=== PATIENT | male | born 1945 | race Caucasian/White ===

== ENCOUNTER 2018-01-14 19:02 | Emergency (ER) | payer MEDICARE, MEDICAID ==
[~2018-01-14] VITALS: Ht 180.3 cm; Wt 59.1 kg
[~2018-01-14 19:02] MED LIST: ALBU6.7H INH; FLUT1DIS4 INH; IPRA3AMP IH
[2018-01-14] MEDS ORDERED: methylPREDNISolone sod succ 125mg/2ml vial IV ONE (19:25)
[2018-01-14] MEDS ORDERED: LORazepam 2 mg/ml vial IV ONE (19:25)
[2018-01-14] MEDS ORDERED: ipratropium/albuterol 3ml nebule NEB ONE (19:25)
[2018-01-14 19:40] LABS: BASOPHILS % (AUTO) 0.3 % (0-1); EOSINOPHILS # (AUTO) 1.5 X10'3 (0-0.9); EOSINOPHILS % (AUTO) 14.5 % (0-6); HEMATOCRIT 51.9 % (42.0-52.0); HEMOGLOBIN 17.6 g/dl (14.0-17.9); LYMPHOCYTES # (AUTO) 1.2 X10'3 (1.1-4.8); LYMPHOCYTES % (AUTO) 11.5 % (21-51); MEAN CORPUSCULAR HEMOGLOBIN 32.4 PG (27.0-31.0); MEAN CORPUSCULAR HGB CONC 33.8 % (33.0-36.5); MEAN CORPUSCULAR VOLUME 95.7 FL (78-98); MEAN PLATELET VOLUME 8.3 FL (7.4-10.4); MONOCYTES # (AUTO) 0.8 X10'3 (0-0.9); MONOCYTES % (AUTO) 7.8 % (2-12); NEUTROPHILS # (AUTO) 6.6 X10'3 (1.8-7.7); NEUTROPHILS % (AUTO) 65.9 % (42-75); PLATELET COUNT 240 X10'3 (140-440); RED BLOOD COUNT 5.43 X10'6 (4.70-6.10); WHITE BLOOD COUNT 10.1 X10'3 (4.5-11.0)
[2018-01-14 19:55] LABS: PARTIAL THROMBOPLASTIN TIME 30 SECONDS (22-32); PROTHROMBIN TIME 10.7 SECONDS (9.0-12.0)
[2018-01-14 19:58] LABS: ALANINE AMINOTRANSFERASE 24 U/L (12-78); ALKALINE PHOSPHATASE 115 IU/L (46-116); ANION GAP 9 (8-16); ASPARTATE AMINO TRANSFERASE 19 U/L (10-37); BILIRUBIN,TOTAL 0.5 MG/DL (0.1-1.0); BLOOD UREA NITROGEN 13 MG/DL (7-18); BUN/CREATININE RATIO 12.7 (5.4-32.0); CALCIUM 9.8 MG/DL (8.5-10.1); CHLORIDE 102 MMOL/L (99-107); CREATININE 1.02 MG/DL (0.60-1.10); GLUCOSE 108 MG/DL (70-104); POTASSIUM 3.8 MMOL/L (3.5-5.1); SODIUM 141 MMOL/L (135-145); TOTAL CARBON DIOXIDE 30.2 MMOL/L (24-32); TOTAL PROTEIN 8.1 G/DL (6.4-8.2); eGFR 72 ML/MIN
[2018-01-14 20:21] VITALS: BP 122/69
[2018-01-14] MEDS ORDERED: triamcinolone acetonide 40mg/ml inj IM ONE (20:50)
[2018-01-14] MEDS ORDERED: AZIT500T5 PO (20:50)
[2018-01-14] MEDS ORDERED: PRED20TA PO (20:50)
[2018-01-14 21:52] LABS: CLARITY,URINE CLEAR (Clear); COLOR,URINE YELLOW (Yellow); GLUCOSE, URINE NEGATIVE (Neg); KETONES,URINE TRACE mg/dl (Neg); LEUKOCYTE ESTERASE ,URINE NEGATIVE (Neg); NITRITES, URINE NEGATIVE (Neg); OCCULT BLOOD,URINE NEGATIVE (Neg); PH,URINE 5.5 (4.8-8.0); PROTEIN,URINE TRACE mg/dl (Neg); UROBILINOGEN,URINE 0.2 E.U/dL (0.2-1.0)
[2018-01-14 21:56] LABS: UA COLLECTION TYPE CLN CATCH MIDSTREAM
[2018-01-14 22:07] LABS: BACTERIA,URINE NONE SEEN /HPF (Neg); MUCUS STRANDS MANY /LPF (Neg); RBC,URINE 0-2 /HPF (0-2); SQUAMOUS EPITHELIAL CELL,UR NONE SEEN /LPF (FEW); WBC,URINE 0-4 /HPF (0-4)
== END 2018-01-14 21:30 | disposition home or self-care (01) ==
LOC: ER 19:02
DX: J44.1 Chronic obstructive pulmonary disease with (acute) exacerbation (principal); F17.200 Nicotine dependence, unspecified, uncomplicated; Z79.899 Other long term (current) drug therapy
CPT/HCPCS: 36415; 71045; 80053; 81001; 83880; 84145; 85025; 85610; 85730; 87040; 93005; 94640; 94760; 96372; 96374; 96375; 99285; J2060; J2930; J3301

== ENCOUNTER 2018-08-29 15:29 | Emergency (ER) | payer MEDICARE, MEDICAID ==
[~2018-08-29] VITALS: Ht 180.3 cm; Wt 68.2 kg
[~2018-08-29 15:29] MED LIST changes: +AZIT500T5 PO; -IPRA3AMP IH; +IPRA3AMP31 IH
[2018-08-29 16:20] VITALS: BP 120/73
[2018-08-29] MEDS ORDERED: DIPH25CA83 PO (17:07)
[2018-08-29] MEDS ORDERED: METH4TAB3 PO (17:07)
== END 2018-08-29 17:23 | disposition home or self-care (01) ==
LOC: ER 15:30
DX: L23.9 Allergic contact dermatitis, unspecified cause (principal); J44.9 Chronic obstructive pulmonary disease, unspecified; Z79.899 Other long term (current) drug therapy
CPT/HCPCS: 99283

== ENCOUNTER 2019-02-01 22:02 | Emergency (ER) | payer MEDICARE, MEDICAID ==
[~2019-02-01] VITALS: Ht 180.3 cm; Wt 61.4 kg
[~2019-02-01 22:02] MED LIST changes: +DIPH25CA83 PO; +METH4TAB3 PO
[2019-02-01] MEDS ORDERED: ipratropium/albuterol 3ml nebule NEB ONE (22:30)
[2019-02-01] MEDS ORDERED: dexamethasone sod phosphate 10mg/ml inj IV STA (22:31)
[2019-02-01 22:44] LABS: BASOPHILS # (AUTO) 0.1 X10'3 (0-0.2); BASOPHILS % (AUTO) 0.7 % (0-1); EOSINOPHILS # (AUTO) 0.7 X10'3 (0-0.9); EOSINOPHILS % (AUTO) 8.8 % (0-6); HEMOGLOBIN 16.6 g/dl (14.0-17.9); LYMPHOCYTES # (AUTO) 1.1 X10'3 (1.1-4.8); MEAN CORPUSCULAR HEMOGLOBIN 32.6 PG (27.0-31.0); MEAN CORPUSCULAR HGB CONC 34.7 g/dL (33.0-36.5); MEAN PLATELET VOLUME 8.1 FL (7.4-10.4); MONOCYTES # (AUTO) 0.8 X10'3 (0-0.9); MONOCYTES % (AUTO) 9.8 % (2-12); NEUTROPHILS # (AUTO) 5.7 X10'3 (1.8-7.7); NEUTROPHILS % (AUTO) 67.7 % (42-75); PLATELET COUNT 210 X10'3 (140-440); RED CELL DISTRIBUTION WIDTH 13.6 % (11.5-14.5); WHITE BLOOD COUNT 8.4 X10'3 (4.5-11.0)
[2019-02-01 23:00] LABS: PARTIAL THROMBOPLASTIN TIME 30 SECONDS (22-32)
[2019-02-01 23:01] LABS: ALANINE AMINOTRANSFERASE 24 U/L (12-78); ALBUMIN 3.9 G/DL (3.4-5.0); ALKALINE PHOSPHATASE 115 IU/L (46-116); ANION GAP 8 (8-16); ASPARTATE AMINO TRANSFERASE 17 U/L (10-37); BILIRUBIN,TOTAL 0.6 MG/DL (0.1-1.0); BLOOD UREA NITROGEN 10 MG/DL (7-18); BUN/CREATININE RATIO 9.2 (5.4-32.0); CALCIUM 9.1 MG/DL (8.5-10.1); CHLORIDE 103 MMOL/L (99-107); CREATININE 1.09 MG/DL (0.60-1.10); GLUCOSE 112 MG/DL (70-104); SODIUM 140 MMOL/L (135-145); TOTAL CARBON DIOXIDE 28.7 MMOL/L (24-32); eGFR 67 ML/MIN
[2019-02-01] MEDS ORDERED: DOXY100C43 PO (23:10)
[2019-02-01] MEDS ORDERED: ALB0.5UD IH (23:10)
[2019-02-01] MEDS ORDERED: ALBU8HFA PO (23:10)
[2019-02-01] MEDS ORDERED: PRED20TA PO (23:10)
[2019-02-01 23:13] VITALS: BP 121/79
== END 2019-02-01 23:21 | disposition home or self-care (01) ==
LOC: ER 22:03
DX: J44.1 Chronic obstructive pulmonary disease with (acute) exacerbation (principal); Z79.899 Other long term (current) drug therapy; Z72.0 Tobacco use
CPT/HCPCS: 36415; 71045; 80053; 83880; 84484; 85025; 85610; 85730; 93005; 94640; 94760; 96374; 99284; J1100

== ENCOUNTER 2019-07-01 12:57 | Inpatient (IN) | payer MEDICARE, MEDICAID ==
[~2019-07-01] VITALS: Ht 180.3 cm; Wt 63.0 kg
[~2019-07-01 12:57] MED LIST changes: -ALBU6.7H INH; +ALBU6.7H9 INH; -AZIT500T5 PO; +AZIT500T9 PO
[2019-07-01] MEDS ORDERED: ipratropium/albuterol 3ml nebule NEB ONE (13:20)
[2019-07-01] MEDS ORDERED: methylPREDNISolone sod succ 125mg/2ml vial IV ONE (13:20)
[2019-07-01 13:24] LABS: BASOPHILS # (AUTO) 0.1 X10'3 (0-0.2); BASOPHILS % (AUTO) 0.8 % (0-1); EOSINOPHILS # (AUTO) 0.8 X10'3 (0-0.9); EOSINOPHILS % (AUTO) 9.4 % (0-6); HEMATOCRIT 45.8 % (42.0-52.0); HEMOGLOBIN 15.8 g/dl (14.0-17.9); LYMPHOCYTES # (AUTO) 1.6 X10'3 (1.1-4.8); LYMPHOCYTES % (AUTO) 18.3 % (21-51); MEAN CORPUSCULAR HEMOGLOBIN 33.4 PG (27.0-31.0); MEAN CORPUSCULAR HGB CONC 34.4 g/dL (33.0-36.5); MEAN PLATELET VOLUME 8.2 FL (7.4-10.4); MONOCYTES # (AUTO) 0.7 X10'3 (0-0.9); MONOCYTES % (AUTO) 8.6 % (2-12); NEUTROPHILS # (AUTO) 5.4 X10'3 (1.8-7.7); NEUTROPHILS % (AUTO) 62.9 % (42-75); PLATELET COUNT 192 X10'3 (140-440); RED BLOOD COUNT 4.72 X10'6 (4.70-6.10); RED CELL DISTRIBUTION WIDTH 13.6 % (11.5-14.5); WHITE BLOOD COUNT 8.6 X10'3 (4.5-11.0)
[2019-07-01 13:47] LABS: ALANINE AMINOTRANSFERASE 24 U/L (12-78); ALBUMIN 3.9 G/DL (3.4-5.0); ALBUMIN/GLOBULIN RATIO 1.1 (1.1-1.5); ALKALINE PHOSPHATASE 104 IU/L (46-116); ANION GAP 10 (8-16); ASPARTATE AMINO TRANSFERASE 14 U/L (10-37); BILIRUBIN,TOTAL 0.6 MG/DL (0.1-1.0); BLOOD UREA NITROGEN 13 MG/DL (7-18); BUN/CREATININE RATIO 12.4 (5.4-32.0); CALCIUM 8.4 MG/DL (8.5-10.1); CHLORIDE 105 MMOL/L (99-107); CREATININE 1.05 MG/DL (0.60-1.10); GLUCOSE 218 MG/DL (70-104); POTASSIUM 4.3 MMOL/L (3.5-5.1); SODIUM 142 MMOL/L (135-145); TOTAL CARBON DIOXIDE 26.7 MMOL/L (24-32); TOTAL PROTEIN 7.6 G/DL (6.4-8.2); eGFR 70 ML/MIN
[2019-07-01 13:55] LABS: ABG BASE EXCESS -4.4 mmol/L (-2.0-3.0); ABG HCO3 20.3 mmol/L (22.0-26.0); ABG OXYGEN SATURATION 94.5 % (95-98); ABG PCO2 (T) 36.5 mmHg (35.0-45.0); ABG PH (T) 7.363 (7.350-7.450); ALLEN'S TEST Positive; FLOW 3 L/min; FMetHb 0.2 % (0.3-1.12); FO2Hb 93.4 % (94-100); TOTAL HEMOGLOBIN 16.3 G/dl (14.0-17.9)
[2019-07-01] MEDS ORDERED: albuterol 2.5 MG/3 ML nebule CONTNEB PRN (14:00)
[2019-07-01] MEDS: normal saline 1000ml 1,000 ML IV SCH (16:26)
[2019-07-01] MEDS ORDERED: magnesium 4gm in 100ml NS 100 ML IV PRN (16:30)
[2019-07-01] MEDS ORDERED: magnesium Cl slow-release 64mg tablet PO PRN (16:30)
[2019-07-01] MEDS ORDERED: potassium CL 10mEq/100ml bag 100 ML IV PRN ×2 (16:30)
[2019-07-01] MEDS ORDERED: ondansetron/PF 4mg/2ml inj IV PRN (16:30)
[2019-07-01] MEDS ORDERED: potassium Cl 20 mEq SR tablet PO PRN ×2 (16:30)
[2019-07-01] MEDS ORDERED: acetaminophen 325mg tablet PO PRN (16:30)
[2019-07-01] MEDS ORDERED: magnesium 2GM in 50ml NS 50 ML IV PRN (16:30)
[2019-07-01] MEDS ORDERED: ALBU2.5V13 NEB (16:41)
[2019-07-01] MEDS ORDERED: ALBU18HF2 INH (16:41)
[2019-07-01] MEDS ORDERED: UMEC1DIS PO (16:41)
[2019-07-01 20:35] VITALS: BP 141/82
--- NOTE | 2019-07-01 20:35 | NUR ---
PATIENT ADMITTED TO ROOM 359B FROM ER FOR COPD EXACERBATION. PLACED COMFORTABLE IN BED. VITAL SIGNS TAKEN AND RECORDED.
[2019-07-01] MEDS: ipratropium/albuterol 3ml nebule NEB PRN (20:55)
[2019-07-02] VITALS: BP 108/71
[2019-07-02] MEDS: normal saline 1000ml 1,000 ML IV SCH (00:30)
[2019-07-02] MEDS: methylPREDNISolone sod succ/PF 40mg inj. IV SCH ×3 (00:31→20:49)
[2019-07-02] MEDS: heparin, porcine 5000 units/ml vial SQ SCH ×4 (00:32→20:51)
[2019-07-02] MEDS: ipratropium/albuterol 3ml nebule NEB PRN ×4 (03:34→19:22)
--- NOTE | 2019-07-02 06:40 | NUR ---
Problems reprioritized. Patient report given, questions answered & plan of care reviewed with TAYLOR CRUZ.
--- NOTE | 2019-07-02 06:53 | NUR ---
Patient in room [facility] 359. I have received report from NANCY MILLIGAN and had the opportunity to ask questions and assume patient care.
[2019-07-02 06:56] LABS: HEMATOCRIT 46.5 % (42.0-52.0); MEAN CORPUSCULAR HEMOGLOBIN 32.8 PG (27.0-31.0); MEAN CORPUSCULAR HGB CONC 34.4 g/dL (33.0-36.5); MEAN CORPUSCULAR VOLUME 95.4 FL (78-98); RED BLOOD COUNT 4.88 X10'6 (4.70-6.10); WHITE BLOOD COUNT 9.4 X10'3 (4.5-11.0)
[2019-07-02 06:57] LABS: BASOPHILS % (AUTO) 0.2 % (0-1); EOSINOPHILS % (AUTO) 0 % (0-6); LYMPHOCYTES # (AUTO) 0.5 X10'3 (1.1-4.8); LYMPHOCYTES % (AUTO) 5.8 % (21-51); MEAN PLATELET VOLUME 8.8 FL (7.4-10.4); MONOCYTES # (AUTO) 0.1 X10'3 (0-0.9); MONOCYTES % (AUTO) 1.4 % (2-12); NEUTROPHILS # (AUTO) 8.7 X10'3 (1.8-7.7); NEUTROPHILS % (AUTO) 92.6 % (42-75); PLATELET COUNT 200 X10'3 (140-440); RED CELL DISTRIBUTION WIDTH 13.4 % (11.5-14.5)
[2019-07-02 07:00] VITALS: BP 117/80
[2019-07-02 07:00] LABS: ALBUMIN 3.9 G/DL (3.4-5.0); ANION GAP 11 (8-16); BLOOD UREA NITROGEN 16 MG/DL (7-18); BUN/CREATININE RATIO 19.3 (5.4-32.0); CALCIUM 9.4 MG/DL (8.5-10.1); CHLORIDE 102 MMOL/L (99-107); CREATININE 0.83 MG/DL (0.60-1.10); GLUCOSE 121 MG/DL (70-104); MAGNESIUM 2.3 MG/DL (1.5-2.4); POTASSIUM 4.4 MMOL/L (3.5-5.1); SODIUM 139 MMOL/L (135-145); TOTAL CARBON DIOXIDE 25.7 MMOL/L (24-32); eGFR > 90 ML/MIN
[2019-07-02] MEDS: azithromycin 250mg tablet PO SCH (07:12)
[2019-07-02] MEDS: K and/or MAG REPLACEMENT MC SCH (08:00)
--- NOTE | 2019-07-02 08:51 | NUR ---
Patient c/o being SOB even at rest. Patient had breathing treatment but still feels SOB. Patient has had no BNP ordered. No lasix and is on NS 20ml/hr IV. Dr. Galvan notified of this.
--- NOTE | 2019-07-02 08:59 | NUR ---
Patient appears to be anxious. He is sitting up at side of bed and is standing up, sitting back down, and standing up and sitting back down. Mild shaking in the hands. Dr. Galvan notified.
[2019-07-02] MEDS ORDERED: LORazepam 0.5 MG tablet PO PRN (09:25)
[2019-07-02] MEDS ORDERED: LORazepam 2 mg/ml vial IV ONE ×2 (09:30→11:45)
[2019-07-02] MEDS ORDERED: LORazepam 2 mg/ml vial IV PRN (11:45)
[2019-07-02 12:26] VITALS: BP 120/81
[2019-07-02 18:00] VITALS: BP 123/75
--- NOTE | 2019-07-02 18:09 | NUR ---
Problems reprioritized. Patient report given, questions answered & plan of care reviewed with Eliza Samuel RN.
--- NOTE | 2019-07-02 18:15 | NUR ---
Patient in room [facility] 359. I have received report from NANCY Quintanilla and had the opportunity to ask questions and assume patient care. Addendum: 07/02/19 at 1815 by Ellyn Mena RN Amended: Links added.
[2019-07-02] MEDS: lactobacillus rhamnosus 10,000 MMU CELLS/CAPSULE PO SCH (20:49)
[2019-07-03] VITALS: BP 129/68
[2019-07-03] MEDS: ipratropium/albuterol 3ml nebule NEB PRN ×4 (05:26→17:57)
[2019-07-03 05:45] LABS: BASOPHILS # (AUTO) 0.2 X10'3 (0-0.2); BASOPHILS % (AUTO) 1.2 % (0-1); EOSINOPHILS % (AUTO) 0 % (0-6); HEMATOCRIT 48.6 % (42.0-52.0); HEMOGLOBIN 16.6 g/dl (14.0-17.9); LYMPHOCYTES # (AUTO) 0.8 X10'3 (1.1-4.8); LYMPHOCYTES % (AUTO) 3.9 % (21-51); MEAN CORPUSCULAR HEMOGLOBIN 33.1 PG (27.0-31.0); MEAN CORPUSCULAR HGB CONC 34.1 g/dL (33.0-36.5); MEAN PLATELET VOLUME 8.7 FL (7.4-10.4); MONOCYTES # (AUTO) 0.8 X10'3 (0-0.9); MONOCYTES % (AUTO) 4.3 % (2-12); NEUTROPHILS # (AUTO) 17.5 X10'3 (1.8-7.7); NEUTROPHILS % (AUTO) 90.6 % (42-75); PLATELET COUNT 215 X10'3 (140-440); RED BLOOD COUNT 5.01 X10'6 (4.70-6.10); RED CELL DISTRIBUTION WIDTH 13.8 % (11.5-14.5); WHITE BLOOD COUNT 19.3 X10'3 (4.5-11.0)
[2019-07-03 05:59] LABS: ALBUMIN 4.3 G/DL (3.4-5.0); ANION GAP 10 (8-16); BLOOD UREA NITROGEN 20 MG/DL (7-18); BUN/CREATININE RATIO 20.6 (5.4-32.0); CALCIUM 9.2 MG/DL (8.5-10.1); CHLORIDE 102 MMOL/L (99-107); CREATININE 0.97 MG/DL (0.60-1.10); GLUCOSE 110 MG/DL (70-104); MAGNESIUM 2.5 MG/DL (1.5-2.4); POTASSIUM 4.4 MMOL/L (3.5-5.1); SODIUM 140 MMOL/L (135-145); TOTAL CARBON DIOXIDE 27.6 MMOL/L (24-32); eGFR 76 ML/MIN
--- NOTE | 2019-07-03 06:00 | NUR ---
Patient in room [facility] 359. I have received report from Eliza and had the opportunity to ask questions and assume patient care.
--- NOTE | 2019-07-03 06:18 | NUR ---
Problems reprioritized. Patient report given, questions answered & plan of care reviewed with NANCY Quintanilla. Addendum: 07/03/19 at 0619 by Ellyn Mena RN Amended: Links added.
--- NOTE | 2019-07-03 06:20 | NUR ---
Patient in room [facility] 359. I have received report from NANCY GAO and had the opportunity to ask questions and assume patient care.
[2019-07-03] MEDS ORDERED: LORazepam 1 MG tablet PO PRN (07:00)
[2019-07-03] MEDS: lactobacillus rhamnosus 10,000 MMU CELLS/CAPSULE PO SCH ×2 (07:53→20:38)
[2019-07-03] MEDS: methylPREDNISolone sod succ/PF 40mg inj. IV SCH ×2 (07:54→20:38)
[2019-07-03] MEDS: azithromycin 250mg tablet PO SCH (07:54)
[2019-07-03 08:00] VITALS: BP 110/60
[2019-07-03] MEDS: heparin, porcine 5000 units/ml vial SQ SCH ×2 (08:00→20:39)
[2019-07-03] MEDS: K and/or MAG REPLACEMENT MC SCH (08:00)
[2019-07-03] MEDS: ipratropium/albuterol 3ml nebule NEB SCH ×3 (15:04→23:24)
[2019-07-03 18:00] VITALS: BP 111/73
--- NOTE | 2019-07-03 18:23 | NUR ---
Problems reprioritized. Patient report given, questions answered & plan of care reviewed with
--- NOTE | 2019-07-03 18:33 | NUR ---
Problems reprioritized. Patient report given, questions answered & plan of care reviewed with NANCY Kay.
--- NOTE | 2019-07-03 18:45 | NUR ---
Student documentation: I have reviewed and agree with all interventions, assessments performed and documented by SN Sukhwinder. Student Medication Administration: For this medication-pass time frame, all medication were reviewed, dispensed, administered and documented per hospital policy by SN Sukhwinder.
--- NOTE | 2019-07-03 18:50 | NUR ---
Patient in room [facility] 359. I have received report from NANCY Quintanilla and had the opportunity to ask questions and assume patient care. Addendum: 07/03/19 at 1850 by Ellyn Mena RN Amended: Links added.
[2019-07-03] MEDS: guaiFENesin ER 600mg tablet PO SCH (20:38)
[2019-07-04] VITALS: BP 107/63
[2019-07-04] MEDS: ipratropium/albuterol 3ml nebule NEB SCH ×3 (03:18→11:26)
[2019-07-04 05:25] LABS: MEAN PLATELET VOLUME 8.4 FL (7.4-10.4)
[2019-07-04 05:28] LABS: BASOPHILS % (AUTO) 0.2 % (0-1); EOSINOPHILS % (AUTO) 0 % (0-6); HEMATOCRIT 43.1 % (42.0-52.0); LYMPHOCYTES # (AUTO) 0.4 X10'3 (1.1-4.8); LYMPHOCYTES % (AUTO) 4.4 % (21-51); MEAN CORPUSCULAR HEMOGLOBIN 33.3 PG (27.0-31.0); MEAN CORPUSCULAR HGB CONC 34.8 g/dL (33.0-36.5); MEAN CORPUSCULAR VOLUME 95.6 FL (78-98); MONOCYTES # (AUTO) 0.3 X10'3 (0-0.9); MONOCYTES % (AUTO) 3.6 % (2-12); NEUTROPHILS # (AUTO) 8.8 X10'3 (1.8-7.7); NEUTROPHILS % (AUTO) 91.8 % (42-75); PLATELET COUNT 166 X10'3 (140-440); RED BLOOD COUNT 4.51 X10'6 (4.70-6.10); RED CELL DISTRIBUTION WIDTH 13.8 % (11.5-14.5); WHITE BLOOD COUNT 9.6 X10'3 (4.5-11.0)
[2019-07-04 05:43] LABS: ALBUMIN 3.5 G/DL (3.4-5.0); ANION GAP 8 (8-16); BLOOD UREA NITROGEN 16 MG/DL (7-18); BUN/CREATININE RATIO 18.8 (5.4-32.0); CALCIUM 8.5 MG/DL (8.5-10.1); CHLORIDE 105 MMOL/L (99-107); CREATININE 0.85 MG/DL (0.60-1.10); GLUCOSE 122 MG/DL (70-104); MAGNESIUM 2.4 MG/DL (1.5-2.4); POTASSIUM 4.5 MMOL/L (3.5-5.1); SODIUM 141 MMOL/L (135-145); TOTAL CARBON DIOXIDE 28.1 MMOL/L (24-32); eGFR 89 ML/MIN
--- NOTE | 2019-07-04 06:10 | NUR ---
Problems reprioritized. Patient report given, questions answered & plan of care reviewed with NANCY Jewell. Addendum: 07/04/19 at 0610 by Ellyn Mena RN Amended: Links added.
--- NOTE | 2019-07-04 06:19 | NUR ---
Patient in room [facility] 359. I have received report from Eliza Knowles RN and had the opportunity to ask questions and assume patient care.
[2019-07-04 07:00] VITALS: BP 108/70
[2019-07-04] MEDS: guaiFENesin ER 600mg tablet PO SCH (07:26)
[2019-07-04] MEDS: methylPREDNISolone sod succ/PF 40mg inj. IV SCH (07:27)
[2019-07-04] MEDS: azithromycin 250mg tablet PO SCH (07:27)
[2019-07-04] MEDS: heparin, porcine 5000 units/ml vial SQ SCH (07:27)
[2019-07-04] MEDS: lactobacillus rhamnosus 10,000 MMU CELLS/CAPSULE PO SCH (07:27)
[2019-07-04] MEDS: K and/or MAG REPLACEMENT MC SCH (08:00)
--- NOTE | 2019-07-04 09:24 | NUR ---
O2 Sat at rest on room air:_95__% If below 89%: Recovery O2 Sat at rest on __1_LPM: via____97___(mask/nasal cannula, etc..) No further documentation is necessary. If O2 Sat did not drop below 89% on room air,ambulate patient on room air. O2 Sat while ambulating on room air:_89__% Recovery O2 Sat while ambulating on __1_LPM:__92_% No further documentation is necessary. If patient does not drop below 89% while ambulating, he/she does not qualify for home O2.
[2019-07-04 11:00] VITALS: BP 112/76
--- NOTE | 2019-07-04 14:44 | NUR ---
O2 Sat at rest on room air:_93__% If below 89%: Recovery O2 Sat at rest on __1_LPM:_93_% via (mask/nasal cannula, etc..) No further documentation is necessary. If O2 Sat did not drop below 89% on room air,ambulate patient on room air. O2 Sat while ambulating on room air:__87_% Recovery O2 Sat while ambulating on 1 LPM:_92__% No further documentation is necessary. If patient does not drop below 89% while ambulating, he/she does not qualify for home O2.
--- NOTE | 2019-07-04 15:15 | NUR ---
Dr. Galvan notified that patient qualified for home O2 and I asked her if patient will be discharge today. Dr. Galvan called me requesting child welfare caseworker to arrange home O2 and nebulizer for this patient. Dr. Galvan stated she will discharge patient tomorrow. Maryse, senior program planner notified about this.
[2019-07-04] MEDS ORDERED: PRED10TA23 PO (15:33)
[2019-07-04] MEDS ORDERED: LACT1CAP26 PO (15:33)
[2019-07-04] MEDS ORDERED: IPRA3AMP9 NEB (15:33)
[2019-07-04] MEDS ORDERED: AZI25OT PO (15:33)
--- NOTE | 2019-07-04 17:00 | NUR ---
Discharge patient home, discharge instructions given to patient and son. Home oxygen safety included in the instruction. New prescriptions sent to pharmacy of choice. Peripheral IV catheter removed, tip intact. Portable oxygen delivered at bedside by Kerri paulino. Instructed patient and son to ensure they have all the belongings with them
== END 2019-07-04 17:07 | disposition home or self-care (01) | DRG 189 ==
LOC: ER 12:57 → ED HOLD 16:26 → SUR 3N 20:30
PROVIDERS: ADMIT Internal Medicine; ATTEND Internal Medicine
DX: J96.20 Acute and chronic respiratory failure, unspecified whether with hypoxia or hypercapnia (principal); J44.1 Chronic obstructive pulmonary disease with (acute) exacerbation; F12.90 Cannabis use, unspecified, uncomplicated; F17.200 Nicotine dependence, unspecified, uncomplicated; F41.9 Anxiety disorder, unspecified; Z91.19 Patient's noncompliance with other medical treatment and regimen; Z79.899 Other long term (current) drug therapy; Z71.6 Tobacco abuse counseling
CPT/HCPCS: 36415; 36600; 71045; 80048; 80053; 82803; 83605; 83735; 83880; 85018; 85025; 87040; 87081; 93005; 93306; 94640; 94760; 96374; 99291; G0378; J1644; J2060; J2920; J2930; J7030

== ENCOUNTER 2019-10-26 16:33 | Emergency (ER) | payer MEDICARE, MEDICAID ==
[~2019-10-26] VITALS: Ht 170.2 cm; Wt 68.2 kg
[~2019-10-26 16:33] MED LIST changes: +ALBU18HF2 INH; -ALBU6.7H9 INH; +AZI25OT PO; -AZIT500T9 PO; -DIPH25CA83 PO; -FLUT1DIS4 INH; -IPRA3AMP31 IH; +IPRA3AMP9 NEB; +LACT1CAP26 PO; -METH4TAB3 PO; +UMEC1DIS PO
--- NOTE | 2019-10-26 17:24 | NUR ---
PATIENT REFUSING BLOOD DRAW THAT WAS ORDERED IN TRIAGE.
[2019-10-26] MEDS ORDERED: ipratropium/albuterol 3ml nebule NEB ONE (18:45)
--- NOTE | 2019-10-26 18:58 | NUR ---
Patient resting comfortably on SANTOSH bhagat was just in evaluating and orders are in.
--- NOTE | 2019-10-26 19:11 | NUR ---
WITH RT FOR BREATHING TREATMENT
--- NOTE | 2019-10-26 19:20 | NUR ---
Per lab blood hemolyzed.
[2019-10-26 19:36] LABS: BASOPHILS % (AUTO) 0.5 % (0-1); EOSINOPHILS # (AUTO) 0.7 X10'3 (0-0.9); EOSINOPHILS % (AUTO) 7.6 % (0-6); HEMOGLOBIN 16.2 g/dl (14.0-17.9); LYMPHOCYTES # (AUTO) 1.1 X10'3 (1.1-4.8); MEAN CORPUSCULAR HEMOGLOBIN 32.7 PG (27.0-31.0); MEAN CORPUSCULAR HGB CONC 34.4 g/dL (33.0-36.5); MEAN PLATELET VOLUME 8.4 FL (7.4-10.4); MONOCYTES # (AUTO) 0.8 X10'3 (0-0.9); MONOCYTES % (AUTO) 8.8 % (2-12); NEUTROPHILS # (AUTO) 6.4 X10'3 (1.8-7.7); NEUTROPHILS % (AUTO) 71.1 % (42-75); PLATELET COUNT 196 X10'3 (140-440); RED BLOOD COUNT 4.95 X10'6 (4.70-6.10); RED CELL DISTRIBUTION WIDTH 13.2 % (11.5-14.5); WHITE BLOOD COUNT 9.1 X10'3 (4.5-11.0)
[2019-10-26 19:53] LABS: ALANINE AMINOTRANSFERASE 23 U/L (12-78); ALBUMIN/GLOBULIN RATIO 1.1 (1.1-1.5); ALKALINE PHOSPHATASE 96 IU/L (46-116); ANION GAP 10 (8-16); ASPARTATE AMINO TRANSFERASE 21 U/L (10-37); BILIRUBIN,TOTAL 0.6 MG/DL (0.1-1.0); BLOOD UREA NITROGEN 10 MG/DL (7-18); BUN/CREATININE RATIO 11.1 (5.4-32.0); CHLORIDE 106 MMOL/L (99-107); GLUCOSE 102 MG/DL (70-104); POTASSIUM 3.7 MMOL/L (3.5-5.1); SODIUM 144 MMOL/L (135-145); TOTAL CARBON DIOXIDE 27.8 MMOL/L (24-32); TOTAL PROTEIN 7.5 G/DL (6.4-8.2); eGFR 83 ML/MIN
[2019-10-26] MEDS ORDERED: PRED20TA PO (20:05)
[2019-10-26] MEDS ORDERED: ALBU8HFA PO (20:07)
[2019-10-26] MEDS ORDERED: predniSONE 20 mg tablet PO STA (20:07)
[2019-10-26] MEDS ORDERED: AZIT500T9 PO (20:29)
[2019-10-26 20:34] VITALS: BP 120/83
--- NOTE | 2019-10-28 12:10 | NUR ---
LEFT MESSAGE FOR PATIENT TO RETURN CALL REGARDING TEST RESULTS.
--- NOTE | 2019-10-30 10:10 | NUR ---
attempted to call a second time. phone rings then goes to a busy signel.
== END 2019-10-26 20:37 | disposition home or self-care (01) ==
LOC: ER 16:34
DX: J44.1 Chronic obstructive pulmonary disease with (acute) exacerbation (principal); F17.200 Nicotine dependence, unspecified, uncomplicated; Z79.2 Long term (current) use of antibiotics; Z79.899 Other long term (current) drug therapy
CPT/HCPCS: 36415; 71046; 80053; 83880; 85025; 93005; 94640; 99285; J7512; 94760

== ENCOUNTER 2020-02-15 21:41 | Emergency (ER) | payer MEDICARE, MEDICAID ==
[~2020-02-15] VITALS: Ht 180.3 cm; Wt 64.0 kg
[~2020-02-15 21:41] MED LIST changes: -AZI25OT PO; +FURO20TA4 PO; +GUAI600T45 PO; +IPRA3AMP31 NEB; -IPRA3AMP9 NEB; -LACT1CAP26 PO; +PRED10TA23 PO; +UMEC1DIS IH; -UMEC1DIS PO
[2020-02-15] MEDS ORDERED: methylPREDNISolone sod succ 125mg/2ml vial IV ONE (22:00)
[2020-02-15] MEDS ORDERED: albuterol 2.5 MG/3 ML nebule NEB ONE ×2 (22:00→23:55)
[2020-02-15] MEDS ORDERED: normal saline 1000ML IV soln IVB ONE (22:00)
[2020-02-15] MEDS ORDERED: ipratropium/albuterol 3ml nebule NEB ONE (22:00)
[2020-02-15 22:22] LABS: BASOPHILS # (AUTO) 0.1 X10'3 (0-0.2); BASOPHILS % (AUTO) 1.1 % (0-1); EOSINOPHILS # (AUTO) 0.6 X10'3 (0-0.9); EOSINOPHILS % (AUTO) 6.2 % (0-6); HEMATOCRIT 48.3 % (42.0-52.0); HEMOGLOBIN 16.5 g/dl (14.0-17.9); LYMPHOCYTES % (AUTO) 10.4 % (21-51); MEAN CORPUSCULAR HEMOGLOBIN 33.1 PG (27.0-31.0); MEAN CORPUSCULAR HGB CONC 34.2 g/dL (33.0-36.5); MEAN CORPUSCULAR VOLUME 96.8 FL (78-98); MEAN PLATELET VOLUME 8.3 FL (7.4-10.4); MONOCYTES # (AUTO) 0.8 X10'3 (0-0.9); MONOCYTES % (AUTO) 8.7 % (2-12); NEUTROPHILS # (AUTO) 6.8 X10'3 (1.8-7.7); NEUTROPHILS % (AUTO) 73.6 % (42-75); PLATELET COUNT 220 X10'3 (140-440); RED BLOOD COUNT 4.99 X10'6 (4.70-6.10); RED CELL DISTRIBUTION WIDTH 13.8 % (11.5-14.5); WHITE BLOOD COUNT 9.3 X10'3 (4.5-11.0)
[2020-02-15 22:32] LABS: ALANINE AMINOTRANSFERASE 27 U/L (12-78); ALBUMIN 4.1 G/DL (3.4-5.0); ALBUMIN/GLOBULIN RATIO 1.1 (1.1-1.5); ALKALINE PHOSPHATASE 111 IU/L (46-116); ANION GAP 13 (8-16); ASPARTATE AMINO TRANSFERASE 17 U/L (10-37); BILIRUBIN,TOTAL 0.9 MG/DL (0.1-1.0); BLOOD UREA NITROGEN 13 MG/DL (7-18); BUN/CREATININE RATIO 12.3 (5.4-32.0); CALCIUM 8.9 MG/DL (8.5-10.1); CHLORIDE 108 MMOL/L (99-107); CREATININE 1.06 MG/DL (0.60-1.10); GLUCOSE 129 MG/DL (70-104); POTASSIUM 4.1 MMOL/L (3.5-5.1); SODIUM 145 MMOL/L (135-145); TOTAL CARBON DIOXIDE 24.5 MMOL/L (24-32); TOTAL PROTEIN 7.7 G/DL (6.4-8.2); eGFR 69 ML/MIN
[2020-02-16] MEDS ORDERED: albuterol 2.5 MG/3 ML nebule ONE ×2 (00:01→00:04)
[2020-02-16] MEDS ORDERED: albuterol 2.5 MG/3 ML nebule NEB ONE (02:30)
[2020-02-16] MEDS ORDERED: PRED20TA PO (04:15)
[2020-02-16] MEDS ORDERED: AZIT-31 PO (04:15)
[2020-02-16] MEDS ORDERED: azithromycin 250mg tablet PO ONE (04:20)
[2020-02-16 04:43] VITALS: BP 113/81
== END 2020-02-16 05:10 | disposition home or self-care (01) ==
LOC: ER 21:42
DX: J44.1 Chronic obstructive pulmonary disease with (acute) exacerbation (principal); F17.200 Nicotine dependence, unspecified, uncomplicated; Z72.89 Other problems related to lifestyle; Z79.899 Other long term (current) drug therapy
CPT/HCPCS: 36415; 71045; 80053; 83605; 83880; 84484; 85025; 87040; 93005; 94640; 96374; 99285; J2930; J7030; 94760

== ENCOUNTER 2020-07-29 08:34 | Inpatient (IN) | payer MEDICARE, MEDICAID ==
[~2020-07-29] VITALS: Ht 175.3 cm; Wt 122.0 kg
[~2020-07-29 08:34] MED LIST changes: +ALBU2.5V10 IH; -FURO20TA4 PO; -GUAI600T45 PO; -IPRA3AMP31 NEB; -PRED10TA23 PO; +PRED5TAB PO; -UMEC1DIS IH; +UMEC1DIS PO
--- NOTE | 2020-07-29 08:37 | NUR ---
placed on airborne isolation to r/o covid.
[2020-07-29] MEDS ORDERED: methylPREDNISolone sod succ 125mg/2ml vial IV ONE (08:40)
[2020-07-29] MEDS ORDERED: albuterol 2.5 MG/3 ML nebule CONTNEB PRN (08:40)
--- NOTE | 2020-07-29 08:40 | NUR ---
patient covid +,continue on isolation,patient reports breathing better.Still tachy cardia 110 denies chest discomfort.call light within reach.sating 100% on bipap fi02 100%.
[2020-07-29 09:02] LABS: BASOPHILS # (AUTO) 0.1 X10'3 (0-0.2); BASOPHILS % (AUTO) 0.7 % (0-1); EOSINOPHILS # (AUTO) 0.9 X10'3 (0-0.9); EOSINOPHILS % (AUTO) 5.8 % (0-6); HEMATOCRIT 44.9 % (42.0-52.0); HEMOGLOBIN 15.3 g/dl (14.0-17.9); LYMPHOCYTES # (AUTO) 1.7 X10'3 (1.1-4.8); LYMPHOCYTES % (AUTO) 10.9 % (21-51); MEAN CORPUSCULAR HEMOGLOBIN 33.1 PG (27.0-31.0); MEAN CORPUSCULAR VOLUME 97.2 FL (78-98); MEAN PLATELET VOLUME 8.2 FL (7.4-10.4); MONOCYTES # (AUTO) 1.3 X10'3 (0-0.9); MONOCYTES % (AUTO) 8.4 % (2-12); NEUTROPHILS # (AUTO) 11.7 X10'3 (1.8-7.7); NEUTROPHILS % (AUTO) 74.2 % (42-75); PLATELET COUNT 382 X10'3 (140-440); RED BLOOD COUNT 4.62 X10'6 (4.70-6.10); RED CELL DISTRIBUTION WIDTH 14.3 % (11.5-14.5); WHITE BLOOD COUNT 15.7 X10'3 (4.5-11.0)
--- NOTE | 2020-07-29 09:03 | NUR ---
Rt at bedside.
[2020-07-29 10:26] LABS: ABG HCO3 18.5 mmol/L (22.0-26.0); ABG OXYGEN SATURATION 99.5 % (94-97); ABG PCO2 (T) 37.2 mmHg (35.0-48.0); ABG PO2 (T) 468.2 mmHg (75.0-100.0); ALLEN'S TEST POSITIVE; FCOHb 0.4 % (0.0-3.9); FMetHb 0.2 % (0.0-1.5); FO2Hb 98.9 % (94-97); RESPIRATORY RATE 22 b/min; TIDAL VOLUME 619 mL; TOTAL HEMOGLOBIN 15.5 G/dl (14.0-18.0)
[2020-07-29 10:54] LABS: ALANINE AMINOTRANSFERASE 24 U/L (12-78); ALKALINE PHOSPHATASE 93 IU/L (46-116); ANION GAP 13 (8-16); ASPARTATE AMINO TRANSFERASE 24 U/L (10-37); BILIRUBIN,TOTAL 0.7 MG/DL (0.1-1.0); BLOOD UREA NITROGEN 7 MG/DL (7-18); BUN/CREATININE RATIO 7.9 (5.4-32.0); CALCIUM 9.5 MG/DL (8.5-10.1); CHLORIDE 103 MMOL/L (99-107); CREATININE 0.89 MG/DL (0.60-1.10); GLUCOSE 116 MG/DL (70-104); POTASSIUM 4.5 MMOL/L (3.5-5.1); SODIUM 140 MMOL/L (135-145); TOTAL CARBON DIOXIDE 24.3 MMOL/L (24-32); TOTAL PROTEIN 8.1 G/DL (6.4-8.2); eGFR 84 ML/MIN
--- NOTE | 2020-07-29 11:19 | NUR ---
Pt is continuing to struggle and is in respiratory distress. Pt has accessory muscle use and is retracting when breathing, tachypnea. Pt placed back on bipap at the previous settings. Pt repositioned in the bed. Dr. Carrillo is aware and is contacting the hospitalist to admit the patient to the hospital.
[2020-07-29 11:43] LABS: D-DIMER 2.01 MG/L FEU (0-0.50)
[2020-07-29 11:55] LABS: C-REACTIVE PROTEIN 1.32 MG/DL (0.0-0.5); LACTATE DEHYDROGENASE 277 U/L (85-227)
--- NOTE | 2020-07-29 12:03 | NUR ---
Pt's son Marquise phoned to inquire about the patient's status. Verbal permission obtained from the Patient to speak with the son. Marquise' phone number is [phone].
[2020-07-29] MEDS ORDERED: acetaminophen 325mg tablet PO PRN (13:55)
[2020-07-29] MEDS ORDERED: ipratropium/albuterol 3ml nebule NEB PRN ×2 (13:55)
[2020-07-29] MEDS ORDERED: ondansetron/PF 4mg/2ml inj IV PRN (13:55)
[2020-07-29] MEDS ORDERED: normal saline 1000ml 1,000 ML IV SCH (13:55)
[2020-07-29] MEDS ORDERED: magnesium 4gm in 100ml NS 100 ML IV PRN (13:55)
[2020-07-29] MEDS ORDERED: magnesium 2GM in 50ml NS 50 ML IV PRN (13:55)
[2020-07-29] MEDS ORDERED: potassium CL 10mEq/100ml bag 100 ML IV PRN ×2 (13:55)
[2020-07-29] MEDS ORDERED: potassium Cl 20 mEq SR tablet PO PRN ×2 (13:55)
[2020-07-29] MEDS ORDERED: magnesium Cl slow-release 64mg tablet PO PRN (13:55)
--- NOTE | 2020-07-29 14:36 | NUR ---
Pt placed on NRB mask to transport to CT scan at this time. Pulse is WNL while on NRB.
[2020-07-29] MEDS ORDERED: iohexol 350MG/ML 100ml bottle IV ONE (14:37)
[2020-07-29] MEDS ORDERED: enoxaparin 100mg/ml syringe SUBCUT SCH (15:55)
--- NOTE | 2020-07-29 16:44 | NUR ---
Report given to NANCY Modnragon. Pt will be transported to admission bed shortly.
[2020-07-29] MEDS ORDERED: ALBUTEROL INHALER 1 PUFF/90 MCG INHALER IH PRN (16:45)
[2020-07-29] MEDS: enoxaparin 40mg/0.4ml syringe SUBCUT SCH (17:03)
[2020-07-29 17:57] VITALS: BP 133/86
--- NOTE | 2020-07-29 18:15 | NUR ---
Problems reprioritized. Patient report given, questions answered & plan of care reviewed with Ev CRUZ. Addendum: 07/29/20 at 1815 by Nargis Mckinney RN Problems reprioritized. Patient report given, questions answered & plan of care reviewed with Amanda CRUZ.
--- NOTE | 2020-07-29 18:25 | NUR ---
Patient in room [facility] 4006. I have received report from Nargis CRUZ and had the opportunity to ask questions and assume patient care.
[2020-07-29] MEDS: K and/or MAG REPLACEMENT MC SCH (19:54)
[2020-07-29 22:00] VITALS: BP 143/83
[2020-07-30 02:00] VITALS: BP 125/75
[2020-07-30 06:00] VITALS: BP 110/56
[2020-07-30 06:17] LABS: BASOPHILS % (AUTO) 0.4 % (0-1); EOSINOPHILS % (AUTO) 0.5 % (0-6); HEMATOCRIT 43.8 % (42.0-52.0); HEMOGLOBIN 15.1 g/dl (14.0-17.9); LYMPHOCYTES % (AUTO) 8.9 % (21-51); MEAN CORPUSCULAR HEMOGLOBIN 33.2 PG (27.0-31.0); MEAN CORPUSCULAR HGB CONC 34.3 g/dL (33.0-36.5); MEAN CORPUSCULAR VOLUME 96.7 FL (78-98); MEAN PLATELET VOLUME 7.9 FL (7.4-10.4); MONOCYTES % (AUTO) 8.9 % (2-12); NEUTROPHILS % (AUTO) 81.3 % (42-75); PLATELET COUNT 292 X10'3 (140-440); RED BLOOD COUNT 4.54 X10'6 (4.70-6.10); RED CELL DISTRIBUTION WIDTH 14.7 % (11.5-14.5); WHITE BLOOD COUNT 11.1 X10'3 (4.5-11.0)
--- NOTE | 2020-07-30 06:22 | NUR ---
Problems reprioritized. Patient report given, questions answered & plan of care reviewed with Nargis CRUZ.
[2020-07-30 06:33] LABS: ALBUMIN 3.6 G/DL (3.4-5.0); ANION GAP 12 (8-16); BLOOD UREA NITROGEN 11 MG/DL (7-18); BUN/CREATININE RATIO 13.3 (5.4-32.0); CALCIUM 9.8 MG/DL (8.5-10.1); CHLORIDE 104 MMOL/L (99-107); CREATININE 0.83 MG/DL (0.60-1.10); GLUCOSE 89 MG/DL (70-104); MAGNESIUM 2.4 MG/DL (1.5-2.4); POTASSIUM 4.8 MMOL/L (3.5-5.1); SODIUM 139 MMOL/L (135-145); TOTAL CARBON DIOXIDE 22.7 MMOL/L (24-32); eGFR > 90 ML/MIN
[2020-07-30] MEDS: DEXAMETHASONE 6 MG TABLET PO SCH (07:50)
[2020-07-30] MEDS: K and/or MAG REPLACEMENT MC SCH ×2 (08:00→20:00)
[2020-07-30] MEDS: enoxaparin 40mg/0.4ml syringe SUBCUT SCH (08:00)
[2020-07-30 10:00] VITALS: BP 119/70
[2020-07-30 18:00] VITALS: BP 122/78
--- NOTE | 2020-07-30 18:00 | NUR ---
Patient in room [facility] 4006. I have received report from Nargis CRUZ and had the opportunity to ask questions and assume patient care.
--- NOTE | 2020-07-30 18:13 | NUR ---
Problems reprioritized. Patient report given, questions answered & plan of care reviewed with Amanda CRUZ.
[2020-07-30 19:44] VITALS: BP 97/64
[2020-07-30 22:00] VITALS: BP 98/72
[2020-07-30] MEDS ORDERED: diphenhydrAMINE 25mg capsule PO ONE (22:30)
[2020-07-30] MEDS: guaiFENesin ER 600mg tablet PO SCH (22:39)
[2020-07-31 02:00] VITALS: BP 104/79
--- NOTE | 2020-07-31 06:08 | NUR ---
Problems reprioritized. Patient report given, questions answered & plan of care reviewed with Laura CRUZ.
[2020-07-31 06:30] LABS: BASOPHILS % (AUTO) 0.3 % (0-1); EOSINOPHILS # (AUTO) 0.1 X10'3 (0-0.9); EOSINOPHILS % (AUTO) 0.4 % (0-6); HEMATOCRIT 44.2 % (42.0-52.0); HEMOGLOBIN 14.9 g/dl (14.0-17.9); LYMPHOCYTES # (AUTO) 1.1 X10'3 (1.1-4.8); LYMPHOCYTES % (AUTO) 8.1 % (21-51); MEAN CORPUSCULAR HEMOGLOBIN 32.4 PG (27.0-31.0); MEAN CORPUSCULAR HGB CONC 33.7 g/dL (33.0-36.5); MEAN CORPUSCULAR VOLUME 96.1 FL (78-98); MEAN PLATELET VOLUME 8.3 FL (7.4-10.4); MONOCYTES # (AUTO) 1.3 X10'3 (0-0.9); MONOCYTES % (AUTO) 9.3 % (2-12); NEUTROPHILS % (AUTO) 81.9 % (42-75); PLATELET COUNT 308 X10'3 (140-440); RED BLOOD COUNT 4.59 X10'6 (4.70-6.10); RED CELL DISTRIBUTION WIDTH 14.6 % (11.5-14.5); WHITE BLOOD COUNT 13.4 X10'3 (4.5-11.0)
[2020-07-31 06:34] LABS: D-DIMER 2.21 MG/L FEU (0-0.50)
[2020-07-31 06:39] LABS: ALBUMIN 3.7 G/DL (3.4-5.0); ANION GAP 11 (8-16); BLOOD UREA NITROGEN 14 MG/DL (7-18); BUN/CREATININE RATIO 15.4 (5.4-32.0); C-REACTIVE PROTEIN 0.58 MG/DL (0.0-0.5); CALCIUM 9.5 MG/DL (8.5-10.1); CHLORIDE 105 MMOL/L (99-107); CREATININE 0.91 MG/DL (0.60-1.10); GLUCOSE 79 MG/DL (70-104); MAGNESIUM 2.3 MG/DL (1.5-2.4); POTASSIUM 4.2 MMOL/L (3.5-5.1); SODIUM 140 MMOL/L (135-145); TOTAL CARBON DIOXIDE 23.9 MMOL/L (24-32); eGFR 82 ML/MIN
[2020-07-31] MEDS: enoxaparin 40mg/0.4ml syringe SUBCUT SCH (08:43)
[2020-07-31] MEDS: DEXAMETHASONE 6 MG TABLET PO SCH (08:44)
[2020-07-31] MEDS: guaiFENesin ER 600mg tablet PO SCH (08:44)
[2020-07-31 10:00] VITALS: BP 112/79
[2020-07-31] MEDS ORDERED: DEXA6TAB6 PO (10:13)
[2020-07-31] MEDS ORDERED: AMOX-419 PO (10:41)
--- NOTE | 2020-07-31 15:12 | NUR ---
Getting patient ready for discharge his vitals were stable 112/79 temp 97.8 HR 80 and 95% on 2L O2. Patient was not happy about discharge he complained about not getting the same covid med the president got. He said that he just feels bad. I told patient that it can take weeks to get back to normal after getting COVID. Patient son said he got it from him he was Dx with covid on 07/14 and they live in the same house. Patient IV that was infiltrated was removed he was wheeled down by two RN and his son was there to pick him up. Patient Son had his portable oxygen with him. I told son while down by truck where his prescriptions were sent and they are ready to be picked up.
[2020-07-31] MEDS ORDERED: enoxaparin 40mg/0.4ml syringe SUBCUT SCH (20:00)
== END 2020-07-31 15:16 | disposition home or self-care (01) | DRG 177 ==
LOC: ER 08:35 → ED HOLD 13:57 → ORTHO 4S 17:30
PROVIDERS: ADMIT Internal Medicine; ATTEND Internal Medicine
PROC: 5A09357 Assistance with Respiratory Ventilation, Less than 24 Consecutive Hours, Continuous Positive Airway Pressure (ICD-10-PCS; principal; 2020-07-29)
PROC: B32T1ZZ Computerized Tomography (CT Scan) of Left Pulmonary Artery using Low Osmolar Contrast (ICD-10-PCS; 2020-07-29)
PROC: B3201ZZ Computerized Tomography (CT Scan) of Thoracic Aorta using Low Osmolar Contrast (ICD-10-PCS; 2020-07-29)
PROC: B32S1ZZ Computerized Tomography (CT Scan) of Right Pulmonary Artery using Low Osmolar Contrast (ICD-10-PCS; 2020-07-29)
DX: U07.1 COVID-19 (principal); J96.21 Acute and chronic respiratory failure with hypoxia; J44.1 Chronic obstructive pulmonary disease with (acute) exacerbation; Z79.899 Other long term (current) drug therapy
CPT/HCPCS: 36415; 36600; 71045; 71275; 80048; 80053; 82803; 83605; 83615; 83735; 83880; 84145; 84484; 85018; 85025; 85379; 86140; 87040; 87081; 87635; 93005; 94640; 94660; 94760; 96374; 99285; C9803; G0378; J1650; J2930; J7030; J8540; Q0163; Q9967

== ENCOUNTER 2021-11-01 10:48 | Emergency (ER) | payer MEDICARE, MEDICAID ==
[~2021-11-01] VITALS: Ht 162.6 cm; Wt 72.0 kg
[~2021-11-01 10:48] MED LIST changes: +NICO-687 TD; -PRED5TAB PO; +TIOT18CA3 INH
[2021-11-01] MEDS ORDERED: ipratropium/albuterol 3ml nebule NEB ONE (10:55)
[2021-11-01] MEDS ORDERED: methylPREDNISolone sod succ 125mg/2ml vial IV ONE (10:55)
[2021-11-01] MEDS ORDERED: LORazepam 2 mg/ml vial IV ONE (11:00)
[2021-11-01] MEDS ORDERED: albuterol 2.5 MG/3 ML nebule CONTNEB PRN (11:05)
[2021-11-01] MEDS ORDERED: albuterol 2.5 MG/3 ML nebule ONE (11:10)
[2021-11-01 11:23] LABS: BASOPHILS # (AUTO) 0.1 X10'3 (0-0.2); BASOPHILS % (AUTO) 0.7 % (0-1); EOSINOPHILS # (AUTO) 1.1 X10'3 (0-0.9); HEMOGLOBIN 14.6 g/dl (14.0-17.9); LYMPHOCYTES # (AUTO) 1.3 X10'3 (1.1-4.8); LYMPHOCYTES % (AUTO) 9.5 % (21-51); MEAN CORPUSCULAR HEMOGLOBIN 31.4 PG (27.0-31.0); MEAN CORPUSCULAR VOLUME 92.4 FL (78-98); MEAN PLATELET VOLUME 8.5 FL (7.4-10.4); MONOCYTES % (AUTO) 7.5 % (2-12); NEUTROPHILS # (AUTO) 9.9 X10'3 (1.8-7.7); NEUTROPHILS % (AUTO) 74.3 % (42-75); PLATELET COUNT 226 X10'3 (140-440); RED BLOOD COUNT 4.66 X10'6 (4.70-6.10); RED CELL DISTRIBUTION WIDTH 14.9 % (11.5-14.5); WHITE BLOOD COUNT 13.3 X10'3 (4.5-11.0)
[2021-11-01 12:14] LABS: ALANINE AMINOTRANSFERASE 26 U/L (12-78); ALBUMIN/GLOBULIN RATIO 1.2 (1.1-1.5); ANION GAP 12 (8-16); ASPARTATE AMINO TRANSFERASE 22 U/L (10-37); BILIRUBIN,TOTAL 0.4 MG/DL (0.1-1.0); BLOOD UREA NITROGEN 16 MG/DL (7-18); CALCIUM 9.3 MG/DL (8.5-10.1); CHLORIDE 103 MMOL/L (99-107); CREATININE 0.84 MG/DL (0.60-1.10); GLUCOSE 106 MG/DL (70-104); POTASSIUM 4.3 MMOL/L (3.5-5.1); SODIUM 140 MMOL/L (135-145); TOTAL CARBON DIOXIDE 25.4 MMOL/L (24-32); TOTAL PROTEIN 7.3 G/DL (6.4-8.2); eGFR 89 ML/MIN
[2021-11-01] MEDS ORDERED: albuterol 2.5 MG/3 ML nebule NEB ONE (13:00)
[2021-11-01 13:29] VITALS: BP 100/69
[2021-11-01] MEDS ORDERED: AZIT-83 PO (13:33)
[2021-11-01] MEDS ORDERED: PRED20TA PO (13:33)
== END 2021-11-01 15:29 | disposition home or self-care (01) ==
LOC: ER 10:48
DX: J44.1 Chronic obstructive pulmonary disease with (acute) exacerbation (principal); R06.02 Shortness of breath; R00.0 Tachycardia, unspecified; J44.9 Chronic obstructive pulmonary disease, unspecified; F17.200 Nicotine dependence, unspecified, uncomplicated; Z72.89 Other problems related to lifestyle; Z79.2 Long term (current) use of antibiotics; Z79.899 Other long term (current) drug therapy
CPT/HCPCS: 36415; 71045; 80053; 83880; 85025; 85610; 93005; 94640; 94644; 96374; 96375; 99285; J2060; J2930; 94760; A7015

== ENCOUNTER 2022-07-31 22:23 | Inpatient (IN) | payer MEDICARE, MEDICAID ==
[~2022-07-31] VITALS: Ht 180.3 cm; Wt 72.7 kg
[~2022-07-31 22:23] MED LIST changes: +BUDE180A INH; +MULT-1085 PO; -NICO-687 TD; -TIOT18CA3 INH
--- NOTE | 2022-07-31 22:48 | NUR ---
Note prabhjot in EDM - 07/31/22 at 2250 by LSTOCKTON PT TAKEN TO ROOM 19 FOR EKG AN DLAB DRAW . PT INCREASED WORK OF BREATHING AN DDESAT 90% ON PERSONAL O2 AT 3 LITERS . PUT THE PATIEN TON 4 [place] ON [facility] AND O2 SATS INCREASED TO 92 % DR BOLAND AT BEDSIDE FOR AN ASSESSMENT . PT WILL BE MILLI GTO ROOM 6 ONCE EKG AN DLABS HAVE BEEN COMPLETED .
--- NOTE | 2022-07-31 22:50 | NUR ---
PT TAKEN TO ROOM 19 FOR EKG AND LAB DRAW . PT INCREASED WORK OF BREATHING AND DESATED TO 90% ON PERSONAL O2 AT 3 LITERS . PUT THE PATIENT ON 4 LITERS O2 PER NC ON [facility] AND O2 SATS INCREASED TO 92 % DR BOLAND AT BEDSIDE FOR AN ASSESSMENT . PT WILL BE GOING TO ROOM 6 ONCE EKG AND LABS HAVE BEEN COMPLETED .
--- NOTE | 2022-07-31 22:50 | NUR ---
DR BOLAND TO ASSESS PT FOR BREATHING TREATMENT DR BOLAND IN ROOM 19 WITH PATIENT
[2022-07-31] MEDS ORDERED: ipratropium/albuterol 3ml nebule NEB STA (22:51)
[2022-07-31] MEDS ORDERED: methylPREDNISolone sod succ 125mg/2ml vial IV ONE (23:00)
[2022-07-31] MEDS ORDERED: cefepime 2g/NS 100ml ADVANTAGE 100 ML IV ONE (23:05)
[2022-07-31] MEDS ORDERED: magnesium 2GM in 50ml NS 50 ML IV ONE (23:05)
[2022-07-31 23:10] LABS: BASOPHILS # (AUTO) 0.1 X10'3 (0-0.2); BASOPHILS % (AUTO) 0.6 % (0-1); EOSINOPHILS # (AUTO) 0.8 X10'3 (0-0.9); EOSINOPHILS % (AUTO) 7.2 % (0-6); HEMATOCRIT 38.8 % (42.0-52.0); HEMOGLOBIN 12.9 g/dl (14.0-17.9); LYMPHOCYTES # (AUTO) 1.2 X10'3 (1.1-4.8); LYMPHOCYTES % (AUTO) 9.9 % (21-51); MEAN CORPUSCULAR HEMOGLOBIN 30.3 PG (27.0-31.0); MEAN CORPUSCULAR HGB CONC 33.3 g/dL (33.0-36.5); MEAN CORPUSCULAR VOLUME 91.2 FL (78-98); MEAN PLATELET VOLUME 7.8 FL (7.4-10.4); MONOCYTES # (AUTO) 1.3 X10'3 (0-0.9); MONOCYTES % (AUTO) 11.6 % (2-12); NEUTROPHILS # (AUTO) 8.2 X10'3 (1.8-7.7); NEUTROPHILS % (AUTO) 70.7 % (42-75); PLATELET COUNT 253 X10'3 (140-440); RED BLOOD COUNT 4.25 X10'6 (4.70-6.10); RED CELL DISTRIBUTION WIDTH 15.3 % (11.5-14.5); WHITE BLOOD COUNT 11.6 X10'3 (4.5-11.0)
[2022-07-31] MEDS ORDERED: ringers solution, lacted 1,000 ML IV ONE (23:10)
[2022-07-31 23:22] LABS: ALANINE AMINOTRANSFERASE 22 U/L (12-78); ALBUMIN 2.9 G/DL (3.4-5.0); ALBUMIN/GLOBULIN RATIO 0.7 (1.1-1.5); ALKALINE PHOSPHATASE 94 IU/L (46-116); ANION GAP 10 (8-16); ASPARTATE AMINO TRANSFERASE 21 U/L (10-37); BILIRUBIN,TOTAL 0.4 MG/DL (0.1-1.0); BLOOD UREA NITROGEN 15 MG/DL (7-18); BUN/CREATININE RATIO 21.4 (5.4-32.0); CHLORIDE 97 MMOL/L (99-107); GLUCOSE 120 MG/DL (70-104); POTASSIUM 3.8 MMOL/L (3.5-5.1); SODIUM 134 MMOL/L (135-145); TOTAL CARBON DIOXIDE 27.4 MMOL/L (24-32); TOTAL PROTEIN 7.3 G/DL (6.4-8.2); eGFR > 90 ML/MIN
[2022-08-01] MEDS ORDERED: ondansetron/PF 4mg/2ml inj IV PRN (00:40)
[2022-08-01] MEDS ORDERED: morphine 2 MG/ML inj. syringe IV PRN ×2 (00:40)
[2022-08-01] MEDS ORDERED: acetaminophen 325mg tablet PO PRN ×2 (00:40)
[2022-08-01] MEDS ORDERED: HYDROcodone/acetaminophen 5mg/325mg tablet PO PRN (00:40)
[2022-08-01] MEDS ORDERED: mag hydrox/Alum hydrox/simeth 30ml oral suspension PO PRN (00:40)
[2022-08-01] MEDS ORDERED: furosemide 10 MG/1 ML 10ml inj IV ONE (00:40)
[2022-08-01] MEDS ORDERED: magnesium hydroxide 30ml (MOM) UD suspension PO PRN (00:40)
[2022-08-01] MEDS ORDERED: BUDE180A INH (01:27)
[2022-08-01] MEDS ORDERED: albuterol 2.5 MG/3 ML nebule NEB PRN (05:20)
[2022-08-01] MEDS: ipratropium/albuterol 3ml nebule NEB SCH ×3 (07:54→21:00)
[2022-08-01] MEDS: budesonide 0.5mg/2ml UD nebule IH SCH ×2 (07:54→20:24)
[2022-08-01] MEDS: docusate sod 100mg capsule PO SCH ×2 (08:00→20:53)
[2022-08-01] MEDS: enoxaparin 40mg/0.4ml syringe SUBCUT SCH (08:00)
[2022-08-01] MEDS ORDERED: methylPREDNISolone sod succ 125mg/2ml vial IV ONE (08:00)
[2022-08-01] MEDS ORDERED: furosemide 20 MG/2 ML vial IV SCH (08:00)
[2022-08-01] MEDS: multivitamins, therapeutics tablet PO SCH (08:35)
[2022-08-01] MEDS: levoFLOXACIN-Levaquin 750MG/D5 150 ML IV SCH (08:36)
[2022-08-01] MEDS: normal saline 1000ml 1,000 ML IV SCH (18:19)
[2022-08-01 20:11] LABS: BASOPHILS # (AUTO) 0.1 X10'3 (0-0.2); BASOPHILS % (AUTO) 0.5 % (0-1); EOSINOPHILS % (AUTO) 0.1 % (0-6); HEMOGLOBIN 14.6 g/dl (14.0-17.9); LYMPHOCYTES # (AUTO) 0.5 X10'3 (1.1-4.8); LYMPHOCYTES % (AUTO) 5.4 % (21-51); MEAN CORPUSCULAR HEMOGLOBIN 31.2 PG (27.0-31.0); MEAN CORPUSCULAR VOLUME 91.8 FL (78-98); MONOCYTES # (AUTO) 0.3 X10'3 (0-0.9); MONOCYTES % (AUTO) 3.1 % (2-12); NEUTROPHILS # (AUTO) 8.8 X10'3 (1.8-7.7); NEUTROPHILS % (AUTO) 90.9 % (42-75); PLATELET COUNT 305 X10'3 (140-440); RED BLOOD COUNT 4.68 X10'6 (4.70-6.10); RED CELL DISTRIBUTION WIDTH 15.6 % (11.5-14.5); WHITE BLOOD COUNT 9.7 X10'3 (4.5-11.0)
[2022-08-01 20:20] VITALS: BP 119/76
[2022-08-01 20:20] LABS: ALANINE AMINOTRANSFERASE 26 U/L (12-78); ALBUMIN 3.3 G/DL (3.4-5.0); ALBUMIN/GLOBULIN RATIO 0.7 (1.1-1.5); ALKALINE PHOSPHATASE 99 IU/L (46-116); ANION GAP 10 (8-16); ASPARTATE AMINO TRANSFERASE 21 U/L (10-37); BILIRUBIN,TOTAL 0.3 MG/DL (0.1-1.0); BLOOD UREA NITROGEN 21 MG/DL (7-18); BUN/CREATININE RATIO 19.8 (5.4-32.0); CALCIUM 10.2 MG/DL (8.5-10.1); CHLORIDE 96 MMOL/L (99-107); CREATININE 1.06 MG/DL (0.60-1.10); GLUCOSE 179 MG/DL (70-104); POTASSIUM 4.6 MMOL/L (3.5-5.1); SODIUM 134 MMOL/L (135-145); TOTAL CARBON DIOXIDE 28.5 MMOL/L (24-32); TOTAL PROTEIN 8.3 G/DL (6.4-8.2); eGFR 68 ML/MIN
[2022-08-02 02:00] VITALS: BP 112/59
[2022-08-02] MEDS: ipratropium/albuterol 3ml nebule NEB SCH ×4 (03:26→21:02)
[2022-08-02] MEDS: normal saline 1000ml 1,000 ML IV SCH ×3 (03:38→23:26)
[2022-08-02 06:00] VITALS: BP 118/64
--- NOTE | 2022-08-02 06:36 | NUR ---
Patient in room PCU 3012. I have received report from NANCY Cuenca and had the opportunity to ask questions and assume patient care.
[2022-08-02 07:14] LABS: BASOPHILS # (AUTO) 0.1 X10'3 (0-0.2); BASOPHILS % (AUTO) 0.5 % (0-1); EOSINOPHILS % (AUTO) 0 % (0-6); HEMATOCRIT 43.6 % (42.0-52.0); HEMOGLOBIN 14.8 g/dl (14.0-17.9); LYMPHOCYTES # (AUTO) 0.9 X10'3 (1.1-4.8); LYMPHOCYTES % (AUTO) 6.2 % (21-51); MEAN CORPUSCULAR HEMOGLOBIN 31.1 PG (27.0-31.0); MEAN CORPUSCULAR HGB CONC 33.9 g/dL (33.0-36.5); MEAN CORPUSCULAR VOLUME 91.9 FL (78-98); MEAN PLATELET VOLUME 8.2 FL (7.4-10.4); MONOCYTES # (AUTO) 1.1 X10'3 (0-0.9); MONOCYTES % (AUTO) 7.6 % (2-12); NEUTROPHILS # (AUTO) 12.5 X10'3 (1.8-7.7); NEUTROPHILS % (AUTO) 85.7 % (42-75); PLATELET COUNT 297 X10'3 (140-440); RED BLOOD COUNT 4.74 X10'6 (4.70-6.10); RED CELL DISTRIBUTION WIDTH 15.6 % (11.5-14.5); WHITE BLOOD COUNT 14.6 X10'3 (4.5-11.0)
[2022-08-02 07:30] LABS: ALBUMIN 3.5 G/DL (3.4-5.0); ANION GAP 10 (8-16); BLOOD UREA NITROGEN 18 MG/DL (7-18); BUN/CREATININE RATIO 21.7 (5.4-32.0); CALCIUM 10.1 MG/DL (8.5-10.1); CHLORIDE 99 MMOL/L (99-107); CREATININE 0.83 MG/DL (0.60-1.10); GLUCOSE 114 MG/DL (70-104); SODIUM 138 MMOL/L (135-145); TOTAL CARBON DIOXIDE 29.2 MMOL/L (24-32); eGFR 90 ML/MIN
[2022-08-02] MEDS: levoFLOXACIN-Levaquin 750MG/D5 150 ML IV SCH (07:39)
[2022-08-02] MEDS: docusate sod 100mg capsule PO SCH ×2 (07:39→19:57)
[2022-08-02] MEDS: multivitamins, therapeutics tablet PO SCH (07:39)
[2022-08-02] MEDS: enoxaparin 40mg/0.4ml syringe SUBCUT SCH (07:40)
[2022-08-02] MEDS: budesonide 0.5mg/2ml UD nebule IH SCH ×2 (08:19→21:01)
[2022-08-02 11:00] VITALS: BP 97/58
[2022-08-02] MEDS ORDERED: predniSONE 20 mg tablet PO ONE (12:30)
[2022-08-02] MEDS: lactose-reduced food (Ensure High Protein) 237ml bottle PO SCH ×2 (13:00→18:00)
[2022-08-02 15:00] VITALS: BP 95/56
--- NOTE | 2022-08-02 18:25 | NUR ---
Problems reprioritized. Patient report given, questions answered & plan of care reviewed with NANCY Cuenca.
[2022-08-02] MEDS: guaiFENesin ER 600mg tablet PO SCH (19:57)
[2022-08-02 20:56] VITALS: BP 101/57
[2022-08-02 22:00] VITALS: BP 126/77
--- NOTE | 2022-08-02 23:56 | NUR ---
Received pt. sitting at side of bed. Alert and talkative acknowledges possible discharge to home tomorrow. No further c/o shortness of breath, is on 02 3L nc, has 02 same at home. Pt. has a peripheral IV NS infusing however is infiltrated. Pt. is upset said had several IV sticks today would prefer not to be stuck again. Pt. would like to take am antibiotic by mouth in am. Will notify team in am. Pt. uses urinal as necessary yellow clear adequate amts. Plan for home discharge with 02 and ordered meds.
[2022-08-03 02:30] VITALS: BP 119/68
[2022-08-03] MEDS: ipratropium/albuterol 3ml nebule NEB SCH ×3 (02:59→15:00)
[2022-08-03 06:00] VITALS: BP 121/74
--- NOTE | 2022-08-03 06:20 | NUR ---
Patient in room PCU 3012. I have received report from NANCY Cuenca and had the opportunity to ask questions and assume patient care.
[2022-08-03 07:34] LABS: ALBUMIN 2.9 G/DL (3.4-5.0); ANION GAP 10 (8-16); BLOOD UREA NITROGEN 15 MG/DL (7-18); BUN/CREATININE RATIO 19.5 (5.4-32.0); CALCIUM 9.1 MG/DL (8.5-10.1); CHLORIDE 104 MMOL/L (99-107); CREATININE 0.77 MG/DL (0.60-1.10); GLUCOSE 92 MG/DL (70-104); SODIUM 139 MMOL/L (135-145); eGFR > 90 ML/MIN
[2022-08-03] MEDS: enoxaparin 40mg/0.4ml syringe SUBCUT SCH (08:00)
[2022-08-03] MEDS ORDERED: predniSONE 20 mg tablet PO SCH (08:00)
[2022-08-03] MEDS: budesonide 0.5mg/2ml UD nebule IH SCH (08:13)
[2022-08-03] MEDS: guaiFENesin ER 600mg tablet PO SCH (08:36)
[2022-08-03] MEDS: multivitamins, therapeutics tablet PO SCH (08:36)
[2022-08-03] MEDS: docusate sod 100mg capsule PO SCH (08:37)
[2022-08-03] MEDS: lactose-reduced food (Ensure High Protein) 237ml bottle PO SCH ×2 (08:38→13:00)
[2022-08-03] MEDS: levoFLOXACIN-Levaquin 750MG/D5 150 ML IV SCH (08:40)
[2022-08-03 09:30] LABS: BASOPHILS % (AUTO) 0.4 % (0-1); EOSINOPHILS % (AUTO) 0.4 % (0-6); HEMATOCRIT 40.2 % (42.0-52.0); HEMOGLOBIN 13.5 g/dl (14.0-17.9); LYMPHOCYTES # (AUTO) 1.3 X10'3 (1.1-4.8); LYMPHOCYTES % (AUTO) 13.5 % (21-51); MEAN CORPUSCULAR HGB CONC 33.7 g/dL (33.0-36.5); MEAN CORPUSCULAR VOLUME 92.2 FL (78-98); MEAN PLATELET VOLUME 7.5 FL (7.4-10.4); MONOCYTES # (AUTO) 0.6 X10'3 (0-0.9); NEUTROPHILS # (AUTO) 7.8 X10'3 (1.8-7.7); NEUTROPHILS % (AUTO) 79.7 % (42-75); PLATELET COUNT 272 X10'3 (140-440); RED BLOOD COUNT 4.36 X10'6 (4.70-6.10); RED CELL DISTRIBUTION WIDTH 15.3 % (11.5-14.5); WHITE BLOOD COUNT 9.8 X10'3 (4.5-11.0)
[2022-08-03] MEDS: normal saline 1000ml 1,000 ML IV SCH (09:30)
[2022-08-03 11:00] VITALS: BP 95/68
[2022-08-03] MEDS ORDERED: LEVO-65 PO (11:59)
[2022-08-03] MEDS ORDERED: IPRA3AMP31 IH ×2 (11:59→14:05)
[2022-08-03] MEDS ORDERED: PRED20TA PO (11:59)
[2022-08-03] MEDS ORDERED: GUAI600T45 PO (11:59)
--- NOTE | 2022-08-03 14:04 | NUR ---
PAGER ID: [phone] MESSAGE: [phone] RE: Lucho Holly room [id number] - his pharmacy did not fill the ipratropium/albuterol said they need a new note from the doctor. Can I get a hard copy prescription for that? Thank you.
--- NOTE | 2022-08-03 16:17 | NUR ---
Patient was discharged with instructions and verbalizing understanding of instructions, in wheelchair accompanied by nursing staff going home via private vehicle. All lines and tubes including PIV with cannula intact and tele monitor have been removed. Education has been provided at bedside and all questions have been answered. Patient will make his follow up appointment with his PCP. Patient was educated on the need for pulmonary rehab. Patient is stable and appropriate for discharge.
--- NOTE | 2022-08-13 09:13 | NUR ---
Case Management DC follow up:Spoke with Patient via telephone. S/P: Patient Reports: Denies: Acute/continuous CP, emergent SOB, resp distress; however, has SOB with activity.Verbalizes he uses home oxygen at 3/L per [place].Denies: vertigo, syncope episodes, orthostatic hypotension, [place], blurry vision, s/s of stoke/BE-FAST, hematochezia, melena, unexplained , bruising, bleeding, fever,chills. Verbalizes understanding of new Rx: why prescribed; continues/resumes current Rx as ordered.Verbalizes understanding of s/s that warrant a -/ER visit for further evaluation. Verbalizes he has not seen his PCP,nor contacted Pulmonary Rehab; declines assistance with appointments.Verbalizes the care he received was alright, just felt he was discharged too soon.No further questions/concerns regarding recent hospital stay and/or DC status at this time.
== END 2022-08-03 15:30 | disposition home or self-care (01) | DRG 177 ==
LOC: ER 22:24 → ED HOLD 08-01 00:43 → PCU 3S 08-01 20:00
PROVIDERS: ADMIT Internal Medicine; ATTEND Family Medicine
DX: J69.0 Pneumonitis due to inhalation of food and vomit (principal); J96.21 Acute and chronic respiratory failure with hypoxia; E87.1 Hypo-osmolality and hyponatremia; J43.9 Emphysema, unspecified; Z20.822 Contact with and (suspected) exposure to COVID-19; Z99.81 Dependence on supplemental oxygen; Z79.899 Other long term (current) drug therapy; Z87.891 Personal history of nicotine dependence
CPT/HCPCS: 36415; 71045; 80048; 80053; 83605; 83880; 84145; 84484; 85025; 87040; 87081; 87502; 87503; 87635; 93005; 93308; 94640; 94760; 99285; G0378; J0692; J1940; J1956; J2930; J3475; J7030; J7120; J7512